=== PATIENT | male | born 1980 | race Caucasian/White ===

== ENCOUNTER 2025-07-10 08:13 | Emergency (ER) | payer OTHER ==
[2025-07-10 09:20] LABS: BASO # 0.1 10^3/uL (0.0-0.2); BASO % 0.5 % (0.0-1.0); EOS # 0.1 10^3/uL (0.0-0.5); EOS % 0.8 % (0.0-3.0); KETONE, URINE AUTO RFX NEGATIVE (NEGATIVE); LEUKOCYTE ESTERASE UR AUTO RFX NEGATIVE (NEGATIVE); LYMPH # 1.3 10^3/uL (1.5-5.0); LYMPH % 11.9 % (24.0-44.0); MONO # 0.8 10^3/uL (0.0-0.8); MONO % 7.6 % (2.0-8.0); MUCUS, URINE RFX SMALL (NEGATIVE); NEUTROPHILS # 8.4 10^3/uL (1.5-8.5); NEUTROPHILS % 78.8 % (36.0-66.0); NITRITE, URINE AUTO RFX NEGATIVE (NEGATIVE); PLATELET COUNT, AUTOMATED 249 10^3/uL (150-450); RBC, URINE AUTO RFX 178 /HPF (0-3); SQUAM EPITHELIAL CELL UR AURFX 0 /HPF (0-6); WBC, URINE AUTO RFX 2 /HPF (0-3)
[2025-07-10 09:50] LABS: ALT/SGPT 47 U/L (7.0-40); AST/SGOT 55 U/L (<34); CALCIUM LEVEL 8.6 MG/DL (8.5-10.1); CARBON DIOXIDE LEVEL 28 MMOL/L (20-31); CHLORIDE LEVEL 103 MMOL/L (98-107); CREATININE FOR GFR 0.83 MG/DL (0.70-1.30); GLOMERULAR FILTRATION RATE > 90.0 (>60); POTASSIUM SERUM 3.7 MMOL/L (3.5-5.1); SODIUM LEVEL 142 MMOL/L (136-145)
[2025-07-10 11:40] VITALS: BP 123/73; TEMP 97.8; O2SAT 99
[2025-07-10] MEDS ORDERED: KETO-204 PO (11:40)
[2025-07-10] MEDS ORDERED: PERC5TAB12 PO (11:40)
[2025-07-10] MEDS ORDERED: ONDA-282 PO (11:40)
== END 2025-07-10 11:48 | disposition home or self-care (01) ==
LOC: EDBD 08:13 → M ED 08:13
DX: N13.2 Hydronephrosis with renal and ureteral calculous obstruction (principal); M16.0 Bilateral primary osteoarthritis of hip; M53.3 Sacrococcygeal disorders, not elsewhere classified; Z87.442 Personal history of urinary calculi; Z79.899 Other long term (current) drug therapy